=== PATIENT | male | born 1955 | race Caucasian/White ===

== ENCOUNTER 2020-05-14 08:29 | Outpatient (CLI) | payer MEDICARE ==
--- NOTE | 2020-05-14 11:29 | PET ---
Nuclear medicine FDG PET/CT: (Positron emission tomography and computed tomography) DATE: 05/14/2020 HISTORY: 64-year-old male with diffuse large B-cell lymphoma. Evaluate response to treatment. COMPARISON: no prior PET images available. Report of PET scan of 02/14/2020 from [facility] available. TECHNIQUE: IV injection of F-18 fluorodeoxyglucose (FDG) dose: 11.0 mCi. PET scan and attenuation correction CT performed from skull base to proximal thighs. FINDINGS: SUV (standard uptake values) numbers given are maximum SUVs. QCLR used. The outside report mentions 2 hypermetabolic left lower lobe pulmonary nodules, with the larger one m easuring 16 mm. The current attenuation correction CT shows no suspicious pulmonary nodules. The outside report mentions "extensive hypermetabolic lymphadenopathy in the para-aortic, retroperito ruben, bilateral iliac, bilateral inguinal, and left femoral regions. The largest of these is likely in the pelvis and difficult to measure due to extensive spray artifact from surgical hardware but see ms to measure approximately 4.0 cm. There is markedly hypermetabolic mesenteric mass or conglomeration of lymph nodes measures up to 7.4 cm in greatest axial dimension" On the current study, there are multiple nonhypermetabolic bilateral para-aortic lymph nodes, each on the order of approximately 0.8 x 1.2 cm. On the current CT, there is an approximately 3 x 1.5 cm soft tissue density mass centered to the left of midline in the midabdomen. There is no increased FDG uptake in this mesenteric residual mass. There are several bilateral mildly prominent inguinal lymph nodes. A typical one on the right is appr oximately 1.5 x 1 cm. These are nonhypermetabolic. The spleen is enlarged, measuring 17 x 8.5 x 16 cm. Splenic SUV is 3.0. Liver SUV is 3.6. Mediastinal blood pool (thoracic aorta) SUV is 2.6. No significantly enlarged mediastinal lymph nodes are visualized. No cervical lymphadenopathy by size criteria. No hypermetabolic activity in the neck or chest. IVC filter. Extensive orthopedic hardware, at pelvis. Right IJ implantable vascular access port. Evidence for old traumatic fracture deformities of right posterior ribs and pelvis. Tiny calcified gallstone. IMPRESSION: 1) Deauville score 1: No residual increased FDG uptake. 2) residual nonhypermetabolic mesenteric mass, decreased in size (based on previous report). 3) nonhypermetabolic retroperitoneal/para-aortic and bilateral inguinal mildly enlarged lymph nodes 4) splenomegaly. 5) complete response to therapy.
== END 2020-05-14 08:30 | disposition home or self-care (01) ==
LOC: PET 08:29
DX: C83.38 Diffuse large B-cell lymphoma, lymph nodes of multiple sites (principal); R16.1 Splenomegaly, not elsewhere classified
CPT/HCPCS: 78815; A9552